=== PATIENT | female | born 1995 | race Two or more races ===

== ENCOUNTER → 2020-07-06 | Outpatient (CLI) | payer BC, OTHER ==
[2020-07-06 14:11] LABS: BASOPHILS % (AUTO) 1 % (0-1); EOSINOPHILS % (AUTO) 3 % (1-7); LYMPHOCYTES % (AUTO) 26 % (22-44); MEAN CORPUSCULAR HEMOGLOBIN 30.6 pg (27.0-34.8); MEAN CORPUSCULAR HGB CONC 34.1 g/dL (32.4-35.8); MEAN PLATELET VOLUME 7.2 fL (7.4-10.4); MONOCYTES % (AUTO) 6 % (2-9); NEUTROPHILS % (AUTO) 64 % (42-75); PLATELET COUNT 302 x10^3/uL (130-400); RED BLOOD COUNT 4.91 x10^6/uL (3.82-5.3); RED CELL DISTRIBUTION WIDTH 12.5 % (9.6-15.2)
[2020-07-06 14:13] LABS: MD NO
[2020-07-06 14:21] LABS: INTERNATIONAL NORMALIZED RATIO 0.99 (0.93-1.1); PROTHROMBIN TIME 10.5 Seconds (9.6-11.5)
[2020-07-06 14:24] LABS: ANION GAP 2 mmol/L (5-15); CALCIUM 9.4 mg/dL (8.5-10.1); CHLORIDE 105 mmol/L (98-107)
[2020-07-06 14:29] LABS: ALANINE AMINOTRANSFERASE 11 U/L (12-78); ALKALINE PHOSPHATASE 50 U/L (45-117); BILIRUBIN,TOTAL 0.6 mg/dL (0.2-1.0); CREATININE 0.94 mg/dL (0.55-1.02)
== END | disposition home or self-care (01) ==
LOC: STAR 12:59
PROVIDERS: ATTEND Specialist
DX: Z01.818 Encounter for other preprocedural examination (principal); Z20.828 Contact with and (suspected) exposure to other viral communicable diseases
CPT/HCPCS: 80053; 84703; 85025; 85610; 85730; 87635; 93005

== ENCOUNTER 2020-07-12 07:33 | Day surgery (SDC) | payer BC, OTHER ==
[~2020-07-12] VITALS: Ht 154.9 cm; Wt 63.1 kg
[~2020-07-12 07:33] MED LIST: BUPIVACAINE/PF 0.25% ONE; EPINEPHRINE 1 MG/ML, 1ML ONE
[2020-07-12] MEDS ORDERED: NO HOME MEDS PER PT (08:07)
[2020-07-12 08:09] LABS: HCG UR SG 1.027 (1.003-1.030)
[2020-07-12] MEDS ORDERED: LACTATED RINGERS 1,000 ML IV SCH (08:30)
[2020-07-12] MEDS ORDERED: CHLORHEXIDINE 15 ML UDC MM ONE (08:30)
[2020-07-12] MEDS ORDERED: CEFOTETAN PMX 2GM/50ML 50 ML IVPB ONE (08:30)
[2020-07-12] MEDS ORDERED: FENTANYL PF 250 MCG/5ML ONE ×3 (09:52→14:02)
[2020-07-12] MEDS ORDERED: MIDAZOLAM 1 MG/ML, 2ML ONE (10:35)
[2020-07-12] MEDS ORDERED: INDOCYANINE GREEN 25 MG VIAL ONE (10:39)
[2020-07-12] MEDS ORDERED: GLYCOPYRROLATE 0.2MG/1ML, 5ML ONE (10:42)
[2020-07-12] MEDS ORDERED: NEOSTIGMINE 1 MG/ML, 10ML ONE (10:42)
[2020-07-12] MEDS ORDERED: ONDANSETRON 2MG/ML, 2ML ONE (10:42)
[2020-07-12] MEDS ORDERED: CEFOTETAN 2 GM ONE (10:42)
[2020-07-12] MEDS ORDERED: KETOROLAC 30 MG/1 ML ONE (10:42)
[2020-07-12] MEDS ORDERED: SUCCINYLCHOLINE 20 MG/ML, 10ML ONE (10:42)
[2020-07-12] MEDS ORDERED: DEXAMETHASONE 4 MG/ML, 1ML ONE (10:42)
[2020-07-12] MEDS ORDERED: METOCLOPRAMIDE 5 MG/ML, 2ML ONE ×2 (10:42)
[2020-07-12] MEDS ORDERED: ROCURONIUM 10 MG/ML,10ML ONE (10:42)
[2020-07-12] MEDS ORDERED: PROPOFOL 50 ML ONE ×2 (11:33→13:42)
[2020-07-12] MEDS ORDERED: LORazepam 2 MG/ML, 1ML IVPush PRN (12:00)
[2020-07-12] MEDS ORDERED: OXYcodone 5 MG/5 ML ORAL.SOL UDC PO PRN (12:00)
[2020-07-12] MEDS ORDERED: METHOCARBAMOL 1,000 MG in DEXTROSE 5% 100 ML IV PRN (12:00)
[2020-07-12] MEDS ORDERED: ONDANSETRON 2MG/ML, 2ML IVPush PRN (12:00)
[2020-07-12] MEDS ORDERED: PROMETHAZINE 25 MG/ML, 1ML IVPush PRN (12:00)
[2020-07-12] MEDS ORDERED: hydrALAzine 20 MG/ML, 1ML IV PRN (12:00)
[2020-07-12] MEDS ORDERED: MEPERIDINE/PF 25MG/0.5ML IVPush PRN (12:00)
[2020-07-12] MEDS ORDERED: ACETAMINOPHEN 325 MG TABLET PO PRN (12:00)
[2020-07-12] MEDS ORDERED: LABETALOL 5MG/ML, 20ML IV PRN (12:00)
[2020-07-12] MEDS ORDERED: EPHEDRINE 50 MG/ML, 1ML IVPush PRN (12:00)
[2020-07-12] MEDS ORDERED: HYDROmorphone 1 MG/ML, 1ML INJ IVPush PRN (12:00)
[2020-07-12] MEDS ORDERED: ACETAMINOPHEN 650 MG/20.3 ML UDC ONE (14:31)
[2020-07-12] MEDS ORDERED: FENTANYL PF 100 MCG/2ML ONE ×2 (14:31→15:08)
[2020-07-12] MEDS ORDERED: OXYcodone 5 MG/5 ML ORAL.SOL UDC ONE (14:32)
[2020-07-12] MEDS: FENTANYL PF 100 MCG/2ML IV PRN ×4 (14:38→15:37)
[2020-07-12] MEDS ORDERED: OXYcodone 5 MG/5 ML ORAL.SOL UDC PO ONE (18:30)
== END 2020-07-12 19:45 | disposition home or self-care (01) ==
LOC: SDC 07:33 → EDSTATUS 09:30 → OUT 19:45
PROVIDERS: ATTEND Specialist
DX: C53.0 Malignant neoplasm of endocervix (principal); Z79.899 Other long term (current) drug therapy
CPT/HCPCS: 36415; 52332; 58548; 74018; 81025; 86850; 86900; 86923; 88112; 88305; 88307; 88309; 88333; C2617; J0171; J0330; J1100; J1885; J2250; J2405; J2704; J2710; J2765; J2800; J3010; J7120; S2900; 88331